=== PATIENT | female | born 1935 | race Caucasian/White ===

== ENCOUNTER → 2023-04-27 | Outpatient (CLI) | payer MEDICARE, BC ==
[~2023-04-27] VITALS: Ht 162.6 cm; Wt 63.5 kg
[~2023-04-27] MED LIST: CALCIUM/MAGNESI1 T18 PO; CELEBREX 1100 MG/CAP PO; COLACE 100100 MG/CAP PO; EPA FISH OIL1 SGL PO; FOLIC ACID 11 MG/TA1 PO; GLUCOSAMINE 1000 PO; LEXAPRO 10MG10 MG PO; LUTEIN20 M1 PO; PLAQUENIL 200M200 MG PO; PROBIOTIC BLEN1 EACH PO; RASUVO15 MG/0.3 SQ; RESTASIS MULTI5.5 ML OU; SINGULAIR 110 MG/TAB PO; TIROSINT75 MC1 PO; TYLENOL 500MG500 MG PO; ULTRAM 50MG TAB50 MG PO; VITAMIN B COMPL1 T16 PO; VITAMIN C500 MG PO; VITAMIN D31000 I1 PO; VITAMIN K2100 MCG PO; VITAMINE200 PO; XYLIGEL50 ML MM
[2023-04-27 12:08] VITALS: BP 194/84; PULSE 56; TEMP 97.8
[2023-04-27 12:50] VITALS: BP 178/83; PULSE 56
== END ==
LOC: COL.RAD 11:10
DX: R59.1 Generalized enlarged lymph nodes (principal)
CPT/HCPCS: 32106